=== PATIENT | female | born 1985 | race Caucasian/White ===

== ENCOUNTER 2017-10-11 19:04 | Emergency (ER) | payer OTHER ==
[~2017-10-11] VITALS: Ht 157.5 cm; Wt 59.0 kg
[2017-10-11] MEDS ORDERED: LORazepam 1 MG tablet PO ONE (19:40)
[2017-10-11] MEDS ORDERED: diphenhydrAMINE 50 mg/ml inj IM ONE (19:40)
[2017-10-11] MEDS ORDERED: ketorolac trometh inj. 60 MG/2 ML VIAL IM ONE (19:40)
[2017-10-11] MEDS ORDERED: metoclopramide 5 mg/ml inj IM ONE (19:40)
[2017-10-11 20:04] VITALS: BP 117/80
== END 2017-10-11 20:37 | disposition home or self-care (01) ==
LOC: ER 19:05
DX: G43.909 Migraine, unspecified, not intractable, without status migrainosus (principal); Z88.1 Allergy status to other antibiotic agents
CPT/HCPCS: 96372; 99284; J1200; J1885; J2765